=== PATIENT | male | born 1965 | race Hispanic/Latino ===

== ENCOUNTER → 2019-05-22 | Outpatient (CLI) | payer BC ==
--- NOTE | 2019-05-22 17:12 | Diagnostic Imaging Report ---
EXAM: Renal Ultrasound INDICATION: ^MICROSCOPIC HEMATURIA / HYDRONEPHROSIS COMPARISON: None TECHNIQUE: Transverse and longitudinal images of the kidneys and bladder were obtained. FINDINGS: Right Kidney: Length: 12.9 cm Appearance: Normal echogenicity. Collecting system: No hydronephrosis Stones: None Cyst/Mass: None Left Kidney: Length: 12.4 cm Appearance: Normal echogenicity. Collecting system: No hydronephrosis Stones: None Cyst/Mass: None Bladder: No bladder mass or calculi. Prevoid volume estimate of 202.8cc. Bilateral ureteral jets visualized. Prostate: The prostate measures 2.0 x 2.6 x 2.6 cm with a volume estimate of 7.0 cc. IMPRESSION: No renal calculi or hydronephrosis. Signed by: Bimal Naidu MD on 05/22/2019 5:09 PM
== END ==
LOC: US 15:44
PROVIDERS: ATTEND Urology
DX: R31.21 Asymptomatic microscopic hematuria (principal); N13.30 Unspecified hydronephrosis
CPT/HCPCS: 76770

== ENCOUNTER → 2021-09-09 | Outpatient (CLI) | payer BC | LOC: US 16:03 | PROVIDERS: ATTEND Urology | DX: R31.21 Asymptomatic microscopic hematuria (principal) | CPT/HCPCS: 76770 ==

== ENCOUNTER → 2022-03-23 | Outpatient (CLI) | payer BC | LOC: US 08:22 | PROVIDERS: ATTEND Internal Medicine Nephrology | DX: N18.4 Chronic kidney disease, stage 4 (severe) (principal) | CPT/HCPCS: 76770; 76857 ==